=== PATIENT | male | born 2000 | race Caucasian/White ===

== ENCOUNTER 2018-02-17 11:35 | Emergency (ER) | payer OTHER ==
[~2018-02-17] VITALS: Ht 170.2 cm; Wt 59.0 kg
== END 2018-02-17 16:03 | disposition home or self-care (01) ==
LOC: ER 11:35
DX: S41.121A Laceration with foreign body of right upper arm, initial encounter (principal); W26.8XXA Contact with other sharp object(s), not elsewhere classified, initial encounter; Y93.89 Activity, other specified; Y92.89 Other specified places as the place of occurrence of the external cause; Y99.8 Other external cause status

== ENCOUNTER 2019-01-30 12:50 | Emergency (ER) | payer OTHER ==
[~2019-01-30] VITALS: Ht 170.2 cm; Wt 63.5 kg
== END 2019-01-30 16:33 | disposition home or self-care (01) ==
LOC: ER 12:50
DX: J45.998 Other asthma (principal); B34.9 Viral infection, unspecified

== ENCOUNTER 2022-11-07 14:04 | Emergency (ER) | payer OTHER ==
[~2022-11-07] VITALS: Ht 167.6 cm; Wt 66.7 kg
[2022-11-07] MEDS ORDERED: DUI500 PO (17:53)
== END 2022-11-07 17:59 | disposition home or self-care (01) ==
LOC: ER 14:04
DX: S51.832A Puncture wound without foreign body of left forearm, initial encounter (principal); X58.XXXA Exposure to other specified factors, initial encounter; Y93.9 Activity, unspecified; Y92.9 Unspecified place or not applicable